=== PATIENT | male | born 1945 | race Two or more races ===

== ENCOUNTER 2016-08-14 02:40 | Inpatient (IN) | payer MEDICARE ==
[~2016-08-14] VITALS: Ht 172.7 cm; Wt 94.1 kg
[~2016-08-14 02:40] MED LIST: AMLO5TAB4 PO; ANAS1TAB8 PO; ATOR40TA PO; CINA30TA PO; CLON0.1T PO; CLOP75TA2 PO; DUTA0.5C PO; FOLI0.8C PO; MULT-1168 PO; NEBI5TAB8 PO; PANT40TA2 PO; TEST100V IM; VALS160T24 PO
--- NOTE | 2016-08-14 02:45 | NUR ---
71 yo male bb . 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 ptambulated to er bed 5 with steady gait, skin warm and dry, rr even and unlabored. 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 called code stroke. pt noted to have right upper and lower extremity sided deficits, patient states this is chronic from his last stroke 2 years ago. no slurred speech noted, face is symmetric, pt passed po challenge. will continue to monitor.
--- NOTE | 2016-08-14 02:48 | NUR ---
EMT AT BED SIDE FOR EKG
--- NOTE | 2016-08-14 02:49 | NUR ---
18G LEFT AC IV STARTED. 20G LEFT FA IV STARTED. BLOOD SAMPLE OBTAINED AND SENT TO LAB
--- NOTE | 2016-08-14 03:01 | NUR ---
PT TRANSPORTED TO CT VIA GURNEY BY RADIOLOGY TEAM AND RN
--- NOTE | 2016-08-14 03:08 | NUR ---
pt returned from ct via [place] by [facility]ard
--- NOTE | 2016-08-14 03:11 | NUR ---
Radiology team at bed side for chest x ray
[2016-08-14 03:15] LABS: BASOPHILS % (AUTO) 0.3 % (0.0-2.0); EOSINOPHILS # (AUTO) 0.3 /CMM (0.0-0.7); EOSINOPHILS % (AUTO) 4.3 % (0.0-6.0); HEMATOCRIT 34 % (39-51); HEMOGLOBIN 11.6 g/dL (13.5-17.5); LYMPHOCYTES % (AUTO) 14.2 % (20.0-44.0); MEAN CORPUSCULAR HEMOGLOBIN 30 PG (26.0-33.0); MEAN CORPUSCULAR HGB CONC 34 g/dl (31.0-36.0); MEAN CORPUSCULAR VOLUME 89 fL (80-96); MONOCYTES # (AUTO) 0.6 /CMM (0.1-1.30); MONOCYTES % (AUTO) 8.2 % (2.0-12.0); NEUTROPHILS # (AUTO) 5.1 /CMM (1.8-8.9); PLATELET COUNT (AUTO) 131 /CMM (150-450); RDW COEFFICIENT OF VARIATION 14.7 (11.5-15.0); RED BLOOD CELL COUNT(AUTO) 3.88 MIL/uL (4.5-6.0)
[2016-08-14 03:22] LABS: INR 1.03 (0.87-1.13)
[2016-08-14 04:05] LABS: CARBON DIOXIDE 30 mmol/L (21-32); CHLORIDE 106 mmol/L (98-107); CREATININE 1.8 mg/dL (0.6-1.3); GLUCOSE 107 mg/dL (74-106); POTASSIUM 4.1 mmol/L (3.5-5.1); SODIUM SERUM 141 mmol/L (136-145); UREA NITROGEN, BLOOD 23 mg/dL (7-18)
[2016-08-14 04:10] LABS: ALANINE AMINOTRANSFERASE 23 U/L (12-78); ALBUMIN 3.2 g/dL (3.4-5.0); ALKALINE PHOSPHATASE 70 U/L (46-116); ASPARTATE AMINOTRANSFERASE 19 U/L (15-37); BILIRUBIN,DIRECT 0.1 mg/dL (0.0-0.2); BILIRUBIN,TOTAL 0.7 mg/dL (0.2-1.0); TOTAL PROTEIN, SERUM 6.2 g/dL (6.4-8.2)
[2016-08-14 04:12] LABS: TROPONIN I < 0.017 ng/mL (0.00-0.056)
--- NOTE | 2016-08-14 04:15 | NUR ---
elsy wheelerlogblade is speaking with md coates. per elsylogblade, pt is not a TPA canidate.
--- NOTE | 2016-08-14 04:26 | NUR ---
pt resting in er ed, nad noted, skin warm and dry, rr even and unlabored. 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 awaiting orders from provider
--- NOTE | 2016-08-14 05:08 | NUR ---
DR. ROMERO PAGED AGAIN
--- NOTE | 2016-08-14 05:08 | NUR ---
GOING TO TELE 326.2
--- NOTE | 2016-08-14 05:15 | NUR ---
MD Andrews is speaking with MD coates for tele admission
--- NOTE | 2016-08-14 05:54 | NUR ---
transported pt to tele bed without incident
--- NOTE | 2016-08-14 05:55 | NUR ---
RN NOTES RECEIVED PATIENT FROM ER VIA [facility] WITH AT BEDSIDE. A/O X4. NO SIGNS OF DISTRESS OR DISCOMFORT. BREATHING EVEN AND UNLABORED. IV ACCESS IN LFA, PATENT AND INTACT, NO SIGNS OF REDNESS OR INFILTRATION. ORIENTED PATIENT TO UNIT AND ROOM. BED IN LOW LOCKED POSITION WITH SIDE RAILS X2. CALL LIGHT WITHIN REACH. WILL CONTINUE TO MONITOR.
[2016-08-14 06:00] VITALS: BP 149/95
[2016-08-14] MEDS ORDERED: MAGNESIUM HYDROXIDE 30 ML UDC PO PRN (06:00)
[2016-08-14] MEDS ORDERED: ONDANSETRON HCL/PF 4 MG/2 ML VIAL IVP PRN (06:00)
[2016-08-14] MEDS ORDERED: ACETAMINOPHEN 325 MG TABLET PO PRN (06:00)
[2016-08-14] MEDS ORDERED: MAG HYDROX/AL HYDROX/SIMETH 30 ML UDC PO PRN (06:00)
[2016-08-14] MEDS ORDERED: Z GUARD REMEDY 2 OZ OINT TP PRN (06:00)
[2016-08-14] MEDS ORDERED: HYDROCODONE/APAP 5/325MG 1 EACH TABLET PO PRN (06:00)
[2016-08-14] MEDS ORDERED: CLONIDINE HCL 0.1 MG TABLET PO PRN (06:00)
[2016-08-14 06:02] VITALS: BP 140/95
[2016-08-14] MEDS ORDERED: ENOXAPARIN SODIUM 40 MG/0.4 ML DISP.SYRIN SQ ONE (06:28)
[2016-08-14] MEDS ORDERED: TERA2CAP4 PO (06:52)
[2016-08-14] MEDS ORDERED: FINA5TAB11 PO (06:52)
[2016-08-14] MEDS ORDERED: AMLODIPINE BESYLATE 5 MG TABLET PO SCH ×2 (07:00→17:44)
[2016-08-14] MEDS: ENOXAPARIN SODIUM 40 MG/0.4 ML DISP.SYRIN SQ SCH (07:12)
--- NOTE | 2016-08-14 07:14 | NUR ---
TELE/RN PATIENT WANTS TO TALK TO RE: MEDS THAT WERE HELD BY DR. ROMERO. PLACED A CALL TO [employer], LEFT MESSAGE.
[2016-08-14] MEDS ORDERED: PANTOPRAZOLE 40 MG TABLET.DR PO SCH (07:30)
--- NOTE | 2016-08-14 07:30 | NUR ---
RECEIVED PT. ALERT AND ORIENTED X 4. AT BEDSIDE,VERBALIZED CONCERN OVER MEDS RN REASSURED.PT. WITH WEAKNESS RT. SIDE BASICALLY FROM FORMER STROKE AND NUMBNESS LT. HAND A RECENT PROBLEM.
--- NOTE | 2016-08-14 08:13 | NUR ---
RN CLOSING NOTES PATIENT AWAKE IN BED WITH AT BEDSIDE. A/O X4. NO SIGNS OF DISTRESS OR DISCOMFORT. BREATHING EVEN AND UNLABORED. IV ACCESS IN LFA, PATENT AND INTACT, NO SIGNS OF REDNESS OR INFILTRATION. BED IN LOW LOCKED POSITION WITH SIDE RAILS X2. CALL LIGHT WITHIN REACH. ENDORSED TO AM SHIFT FOR KATY.
[2016-08-14] MEDS: CLOPIDOGREL BISULFATE 75 MG TABLET PO SCH (09:15)
[2016-08-14] MEDS: FOLIC ACID 1 MG TABLET PO SCH (09:16)
[2016-08-14] MEDS: VALSARTAN 80 MG TABLET PO SCH (09:16)
[2016-08-14 11:05] VITALS: BP 147/80
--- NOTE | 2016-08-14 11:30 | NUR ---
DR. HERNANDEZ IN.
[2016-08-14] MEDS ORDERED: hydrALAZINE HCL 25 MG TABLET PO PRN (12:30)
--- NOTE | 2016-08-14 13:51 | NUR ---
TEXTED DR. FIGUEREDO FOR MRI APPROVAL.
[2016-08-14] MEDS ORDERED: TESTOSTERONE CYPIONATE 100 MG IM SCH (14:00)
[2016-08-14] MEDS ORDERED: ANASTROZOLE 1 MG TABLET PO SCH ×2 (14:00→16:04)
[2016-08-14] MEDS ORDERED: BYSTOLIC 5 MG PO SCH ×2 (14:00→17:43)
--- NOTE | 2016-08-14 14:00 | NUR ---
DR. GAYTAN IN AND TALKED TO PT. AND AT LENGTH.
[2016-08-14] MEDS: MULTIPLE VIT (LYCOPENE/FA/MV,CA,IRON,MIN/LUT)1 TAB PO SCH (15:12)
[2016-08-14 16:25] VITALS: BP 134/78
[2016-08-14] MEDS: PANTOPRAZOLE 40 MG TABLET.DR PO SCH (16:30)
[2016-08-14] MEDS ORDERED: DUTASTERIDE (0.5 MG) 0.5 MG CAPSULE PO SCH (18:00)
[2016-08-14] MEDS ORDERED: TERAZOSIN HCL 1 MG CAPSULE PO SCH ×2 (18:00)
[2016-08-14] MEDS ORDERED: ATORVASTATIN 40 MG TABLET PO SCH ×2 (18:00)
[2016-08-14] MEDS ORDERED: CINACALCET HCL 30 MG TABLET PO SCH ×2 (18:00)
--- NOTE | 2016-08-14 18:00 | NUR ---
MRI,CAROTID DUPLEX AND ECHO DONE.
--- NOTE | 2016-08-14 19:00 | NUR ---
DTR. STILL AT BEDSIDE.
--- NOTE | 2016-08-14 19:30 | NUR ---
RN OPEN NOTES RECEIVED PATIENT AWAKE IN BED WITH AT BEDSIDE. A/O X4. NO SIGNS OF DISTRESS OR DISCOMFORT. BREATHING EVEN AND UNLABORED. IV ACCESS IN LFA, PATENT AND INTACT, NO SIGNS OF REDNESS OR INFILTRATION. BED IN LOW LOCKED POSITION WITH SIDE RAILS X2. CALL LIGHT WITHIN REACH. WILL CONTINUE TO MONITOR.
[2016-08-14 20:00] VITALS: BP 146/83
[2016-08-14] MEDS ORDERED: FINASTERIDE (5 MG) 5 MG TABLET PO SCH (21:00)
[2016-08-14] MEDS: AMLODIPINE BESYLATE 5 MG TABLET PO SCH (21:53)
[2016-08-15] VITALS: BP 140/79
[2016-08-15 04:00] VITALS: BP 131/87
[2016-08-15] MEDS: ENOXAPARIN SODIUM 40 MG/0.4 ML DISP.SYRIN SQ SCH (06:21)
--- NOTE | 2016-08-15 06:43 | NUR ---
RN CLOSING NOTES PATIENT AWAKE IN BED. A/O X4. NO SIGNS OF DISTRESS OR DISCOMFORT. BREATHING EVEN AND UNLABORED. ON TELE MONITORING WITH SR 67 NOTED. IV ACCESS IN LFA, PATENT AND INTACT, NO SIGNS OF REDNESS OR INFILTRATION. NO SIGNIFICANT CHANGES THROUGH THE NIGHT. ALL NEEDS MET. BED IN LOW LOCKED POSITION WITH SIDE RAILS X2. CALL LIGHT WITHIN REACH. WILL ENDORSE TO AM SHIFT FOR KAYT.
[2016-08-15 07:00] VITALS: BP 134/79
[2016-08-15 07:11] LABS: BASOPHILS % (AUTO) 0.2 % (0.0-2.0); EOSINOPHILS # (AUTO) 0.2 /CMM (0.0-0.7); EOSINOPHILS % (AUTO) 3.8 % (0.0-6.0); HEMATOCRIT 31 % (39-51); HEMOGLOBIN 10.8 g/dL (13.5-17.5); LYMPHOCYTES % (AUTO) 15.1 % (20.0-44.0); MEAN CORPUSCULAR HEMOGLOBIN 31 PG (26.0-33.0); MEAN CORPUSCULAR HGB CONC 35 g/dl (31.0-36.0); MEAN CORPUSCULAR VOLUME 88 fL (80-96); MONOCYTES # (AUTO) 0.6 /CMM (0.1-1.30); MONOCYTES % (AUTO) 9.7 % (2.0-12.0); NEUTROPHILS # (AUTO) 4.6 /CMM (1.8-8.9); NEUTROPHILS % (AUTO) 71.2 % (43.0-81.0); PLATELET COUNT (AUTO) 110 /CMM (150-450); RDW COEFFICIENT OF VARIATION 14.6 (11.5-15.0); RED BLOOD CELL COUNT(AUTO) 3.53 MIL/uL (4.5-6.0); WHITE BLOOD COUNT (AUTO) 6.5 K/uL (4.3-11.0)
[2016-08-15 07:36] LABS: CHOLESTEROL 98 mg/dL (<200); HDL CHOLESTEROL 27 mg/dL (40-60); LDL 51 mg/dL (0-99); TRIGLYCERIDES 96 mg/dL (30-150)
[2016-08-15 07:54] LABS: CALCIUM, SERUM 8.8 mg/dL (8.5-10.1); CARBON DIOXIDE 29 mmol/L (21-32); CHLORIDE 108 mmol/L (98-107); CREATININE 1.8 mg/dL (0.6-1.3); GLUCOSE 96 mg/dL (74-106); MAGNESIUM 1.6 mg/dL (1.8-2.4); PHOSPHORUS 4.4 mg/dL (2.5-4.9); POTASSIUM 4.2 mmol/L (3.5-5.1); SODIUM SERUM 144 mmol/L (136-145); UREA NITROGEN, BLOOD 22 mg/dL (7-18)
--- NOTE | 2016-08-15 07:58 | NUR ---
PRODUCTION ENGINE REPAIRER NOTES PATIENT IN BED, ALERT AND ORIENTED, NO COMPLAINT OF CHEST PAIN, NO DISTRESS NOR SOB NOTED, ASSISTED WITH ADLS, SAFETY MEASURES IN PLACED, CALL LIGHT WITHIN REACH, WILL CONTINUE TO MONITOR.
[2016-08-15 08:00] VITALS: BP 134/79
[2016-08-15] MEDS: MULTIPLE VIT (LYCOPENE/FA/MV,CA,IRON,MIN/LUT)1 TAB PO SCH (08:30)
[2016-08-15] MEDS: PANTOPRAZOLE 40 MG TABLET.DR PO SCH (08:30)
[2016-08-15 08:31] VITALS: BP 134/79
[2016-08-15] MEDS: VALSARTAN 80 MG TABLET PO SCH (08:31)
[2016-08-15] MEDS: CLOPIDOGREL BISULFATE 75 MG TABLET PO SCH (08:31)
[2016-08-15] MEDS: FOLIC ACID 1 MG TABLET PO SCH (08:31)
[2016-08-15] MEDS: AMLODIPINE BESYLATE 5 MG TABLET PO SCH (08:31)
[2016-08-15] MEDS ORDERED: FINASTERIDE (5 MG) 5 MG TABLET PO SCH (09:00)
[2016-08-15] MEDS ORDERED: SECONDARY IV SET 1 EA INFUS.SET MC ONE (09:53)
[2016-08-15] MEDS ORDERED: IV SET PRIMARY PUMP SET 1 EA INFUS.SET MC ONE (09:57)
[2016-08-15] MEDS: Magnesium 1GM/D5W 100ML PREMIX 100 ML IV SCH ×2 (10:01→11:04)
--- NOTE | 2016-08-15 10:58 | NUR ---
SOCIAL MEDIA CONTENT SPECIALIST NOTES PER DR. MARLENA EVANS TO DC TELEMETRY.
--- NOTE | 2016-08-15 12:40 | NUR ---
HIM DIRECTOR NOTES PATIENT ALERT AND ORIENTED, PER PATIENT HE STILL FEELS NUMBNESS ON HIS LEFT HAND, BUT VERY MINIMAL, DISCHARGE PAPERWORKS DISCUSSED WITH AND PATIENT, BOTH VERBALIZED UNDERSTANDING, PAPERWORKS SIGNED BY REQUESTED BY THE PATIENT, SKIN ASSESSMENT COMPLETED, PHOTO WAS TAKEN YESTERDAY, THEREFORE PATIENT STATED ITS OK TO NOT TAKE PICTURES NOW, I DONT WANT TO REMOVE MY SHOES, PIV REMOVED, PATIENT IS VERY PLEASANT, NO COMPLAINT OF PAIN, NO SOB NOR DISTRESS NOTED, MEDICATIONS GIVEN BACK TO THE PATIENT AND BELONGINGS RECONCILED, LEFT THE FACILITY ACCOMPANIED BY .
[2016-08-19 09:20] LABS: CALCITRIOL VIT D,1, 25 DIHYDRO 24.6 pg/mL (19.9-79.3)
== END 2016-08-15 12:40 | disposition home or self-care (01) | DRG 74 ==
LOC: ER 02:42 → TELE 05:15 → MED 08-15 10:12
PROVIDERS: ADMIT Internal Medicine; ATTEND Internal Medicine
DX: M54.12 Radiculopathy, cervical region (principal); G45.9 Transient cerebral ischemic attack, unspecified; E44.0 Moderate protein-calorie malnutrition; I69.851 Hemiplegia and hemiparesis following other cerebrovascular disease affecting right dominant side; E11.22 Type 2 diabetes mellitus with diabetic chronic kidney disease; I48.91 Unspecified atrial fibrillation; I12.9 Hypertensive chronic kidney disease with stage 1 through stage 4 chronic kidney disease, or unspecified chronic kidney disease; E78.5 Hyperlipidemia, unspecified; E66.9 Obesity, unspecified; N18.9 Chronic kidney disease, unspecified; N40.0 Benign prostatic hyperplasia without lower urinary tract symptoms; Z85.01 Personal history of malignant neoplasm of esophagus; D63.8 Anemia in other chronic diseases classified elsewhere; Z88.2 Allergy status to sulfonamides; E21.3 Hyperparathyroidism, unspecified; E83.42 Hypomagnesemia; Z79.02 Long term (current) use of antithrombotics/antiplatelets; Z68.31 Body mass index [BMI] 31.0-31.9, adult
CPT/HCPCS: 36415; 70450-TC; 70551-TC; 71010-TC; 80048-TC; 80061-TC; 80076-TC; 82306; 82652; 82962-TC; 83735-TC; 83970; 84100-TC; 84484-TC; 85025-TC; 85730-TC; 87081-TC; 93307-TC; 93880-TC; 97001-TC; A4606; J1650; J3475; Z7610

== ENCOUNTER 2017-08-15 19:21 | Emergency (ER) | payer MEDICARE ==
[~2017-08-15] VITALS: Ht 172.7 cm; Wt 93.9 kg
[~2017-08-15 19:21] MED LIST changes: -CINA30TA PO; +CINA30TA2 PO; +CLOP75TA15 PO; -CLOP75TA2 PO; +FINA5TAB11 PO; +TERA2CAP4 PO; -VALS160T24 PO; +VALS160T28 PO
[2017-08-15 19:38] VITALS: BP 141/78
[2017-08-15] MEDS ORDERED: TETRACAINE HCL/PF 0.5% UD 2 ML BOTTLE ONE (20:16)
[2017-08-15] MEDS ORDERED: FLUORESCEIN SODIUM OPHTH 1 EA STRIP ONE (20:18)
[2017-08-15] MEDS ORDERED: ACYCLOVIR 200 MG CAPSULE ONE (20:19)
[2017-08-15] MEDS ORDERED: TETRACAINE HCL/PF 0.5% UD 2 ML BOTTLE OP ONE (20:30)
[2017-08-15] MEDS ORDERED: ACYCLOVIR 200 MG CAPSULE PO ONE ×2 (20:30→21:00)
--- NOTE | 2017-08-15 21:00 | NUR ---
fluoricein stip done by gabriela anderson to R eye.
--- NOTE | 2017-08-15 21:00 | NUR ---
DELANEY FLORES TALKING TO DR. BA REGARDING PT.
== END 2017-08-15 21:32 | disposition home or self-care (01) ==
LOC: ER 19:24
DX: B02.30 Zoster ocular disease, unspecified (principal); I10 Essential (primary) hypertension; M48.00 Spinal stenosis, site unspecified; Z86.73 Personal history of transient ischemic attack (TIA), and cerebral infarction without residual deficits; Z85.01 Personal history of malignant neoplasm of esophagus; Z90.49 Acquired absence of other specified parts of digestive tract; Z88.2 Allergy status to sulfonamides; Z88.5 Allergy status to narcotic agent; Z98.890 Other specified postprocedural states
CPT/HCPCS: 99283; A4606; Z7610

== ENCOUNTER 2017-09-04 07:14 | Emergency (ER) | payer MEDICARE ==
[~2017-09-04] VITALS: Ht 172.7 cm; Wt 90.7 kg
[~2017-09-04 07:14] MED LIST changes: -VALS160T28 PO; +VALS160T29 PO
[2017-09-04 07:15] VITALS: BP 161/75
[2017-09-04] MEDS ORDERED: HYDROCORTISONE 1% CREAM 30 GM TUBE TP ONE (08:00)
[2017-09-04] MEDS ORDERED: HYDROCODONE/APAP 5/325MG 1 EACH TABLET PO ONE (08:00)
[2017-09-04] MEDS ORDERED: HYDROCORTISONE 1% CREAM 28.35 GM TUBE TP ONE (08:04)
[2017-09-04] MEDS ORDERED: HYDROCODONE/APAP 5/325MG 1 EACH TABLET ONE (08:05)
== END 2017-09-04 08:22 | disposition home or self-care (01) ==
LOC: ER 07:16
DX: B02.29 Other postherpetic nervous system involvement (principal); I10 Essential (primary) hypertension; M48.00 Spinal stenosis, site unspecified; Z86.73 Personal history of transient ischemic attack (TIA), and cerebral infarction without residual deficits; Z85.01 Personal history of malignant neoplasm of esophagus; Z87.39 Personal history of other diseases of the musculoskeletal system and connective tissue; Z96.651 Presence of right artificial knee joint; Z90.49 Acquired absence of other specified parts of digestive tract; Z98.890 Other specified postprocedural states; Z88.2 Allergy status to sulfonamides; Z79.899 Other long term (current) drug therapy
CPT/HCPCS: A4606; Z7610

== ENCOUNTER 2022-01-03 14:16 | Emergency (ER) | payer MEDICARE ==
[~2022-01-03] VITALS: Ht 170.2 cm; Wt 77.1 kg
--- NOTE | 2022-01-03 14:25 | NUR ---
PT BIBRA FROM HOME, PRESENTS W/ LACERATION TO TOP OF HEAD AND THE RIGHT SIDE S/P MECHANICAL GLF, PT STATES THAT HIS SHOE GOT CAUGHT IN THE CARPET. DENIES LOC. VSS. AWAITING MD BRAUN.
[2022-01-03] MEDS ORDERED: TDAP [DIPH/PERTUSSIS/TET] 0.5 ML VIAL IM ONE ×4 (14:30→16:31)
--- NOTE | 2022-01-03 14:40 | NUR ---
DR BUTLER AT BEDSIDE FOR EVAL.
--- NOTE | 2022-01-03 15:06 | NUR ---
PT TO RADIOLOGY FOR HEAD CT SCAN VIA [facility].
--- NOTE | 2022-01-03 15:41 | NUR ---
PT IS UTD W/ TDAP. STATES HAD IT 2 YEARS AGO.
--- NOTE | 2022-01-03 16:37 | NUR ---
RADIOLOGY AT BEDSIDE FOR CHEST XRAY.
[2022-01-03] MEDS ORDERED: LIDOCAINE 1% INJ 50 ML MDV IJ ONE (17:12)
--- NOTE | 2022-01-03 17:20 | NUR ---
HEAD LAC REPAIR DONE, 6 KELL NOTED. PT TOLERATED PROCEDURE WELL.
[2022-01-03] MEDS ORDERED: LIDOCAINE HCL/PF 1% 30 ML VIAL TP ONE (17:30)
[2022-01-03 17:40] VITALS: BP 152/80
--- NOTE | 2022-01-03 17:40 | NUR ---
Patient discharged to home in stable condition. Written and verbal after care instructions given. Patient verbalizes understanding of instruction.
== END 2022-01-03 17:41 | disposition home or self-care (01) ==
LOC: ER 14:26
DX: S01.01XA Laceration without foreign body of scalp, initial encounter (principal); R51.9 Headache, unspecified; I10 Essential (primary) hypertension; Z88.2 Allergy status to sulfonamides; Z88.8 Allergy status to other drugs, medicaments and biological substances; Z79.899 Other long term (current) drug therapy; W18.09XA Striking against other object with subsequent fall, initial encounter; Y93.89 Activity, other specified; Y92.89 Other specified places as the place of occurrence of the external cause; Y99.8 Other external cause status
CPT/HCPCS: 99284; 72125; 71045; 12002; 90471; 90715; 70450; J3490; A6403 ×4